=== PATIENT | female | born 1990 | race Caucasian/White ===

== ENCOUNTER → 2017-05-17 | Outpatient (CLI) | payer BC ==
--- NOTE | 2017-05-17 13:04 | US ---
EXAMINATION TYPE: US thyroid st tissue head/neck DATE OF EXAM: 05/17/2017 COMPARISON: NONE CLINICAL HISTORY: 26-year-old female E04.9 NONTOXIC GOITER. TECHNIQUE: Multiple sonographic images of the thyroid gland are obtained. FINDINGS: GLAND SIZE: Right Lobe: 4.7 x 1.3 x 1.4 cm Overall Parenchyma: homogenous Left Lobe: 4.3 x 1.5 x 2.0 cm Overall Parenchyma: homogeneous Isthmus Thickness: 0.12 cm NODULES RIGHT: # of nodules measured on right: 0 LEFT: # of nodules measured on left: 0 ISTHMUS: # of nodules measured in the isthmus: 0 Bilateral neck scanned, no evidence of lymphadenopathy. IMPRESSION: Thyroid gland measurements as above which fall within acceptable limits. No discrete nodule.
== END | disposition home or self-care (01) ==
LOC: RADUSWWP 11:00
PROVIDERS: ATTEND Family Medicine
DX: E04.9 Nontoxic goiter, unspecified (principal)
CPT/HCPCS: 76536

== ENCOUNTER → 2017-05-17 | Outpatient (CLI) | payer BC ==
[2017-05-17 11:11] LABS: Basophils % (A) 0 %; CH 27.2; CHCM 32.4; Eosinophils # (A) 0.1 k/uL (0-0.7); Eosinophils % (A) 2 %; HCT 41.6 % (34.0-46.0); HDW 2.41; HGB 13.4 gm/dL (11.4-16.0); Luc % (Auto) 3; Lymphocytes # (A) 2.2 k/uL (1.0-4.8); Lymphocytes % (A) 31 %; MCH 27.1 pg (25.0-35.0); MCHC 32.1 g/dL (31.0-37.0); MCV 84.3 fL (80.0-100.0); Mean Platelet Volume 6.8; Monocytes # (A) 0.3 k/uL (0-1.0); Monocytes % (A) 5 %; Neutrophils # (A) 4.4 k/uL (1.3-7.7); Neutrophils % (A) 60 %; RBC 4.94 m/uL (3.80-5.40); RDW 12.1 % (11.5-15.5); WBC 7.3 k/uL (3.8-10.6); WBC (Perox) 7.44
== END | disposition home or self-care (01) ==
LOC: LABWHC1 10:36
PROVIDERS: ATTEND Family Medicine
DX: E78.2 Mixed hyperlipidemia (principal); E04.9 Nontoxic goiter, unspecified; R53.83 Other fatigue
CPT/HCPCS: 36415; 80061; 82947; 84439; 84443; 85025

== ENCOUNTER → 2018-10-07 | Outpatient (CLI) | payer BC ==
--- NOTE | 2018-10-07 16:40 | FL ---
EXAMINATION TYPE: FL hysterosalpingography DATE OF EXAM: 10/07/2018 COMPARISON: None HISTORY: Infertility, and 97.9 TECHNIQUE: Fluoroscopy was provided for the procedure. 46 seconds of fluoroscopy time was provided. 1 3 images are obtained. The procedure was explained to the patient, the risks complications and benefits. All questions are a nswered. Informed consent was obtained. The patient was placed on the fluoroscopy table in supine position. Speculum was placed. Speculum litzy ection was limited in the cervix was unable to be visualized the speculum was provided. The procedure was halted and the patient was allowed to relax while additional speculum was obtained. With the spe culum placed and the cervix was localized. The vaginal vault was cleansed with Betadine. Under direct observation the catheter was placed easily into the cervical os and balloon inflated. There is some mild cramping at the time the balloon inflating. Under fluoroscopy 6 mL of Omnipaque 350 70 was admin istered. The patient was placed in prone position and an additional overhead radiograph was obtained demonstrating free spill of the contrast. FINDINGS: There is prompt fill of a normal-appearing uterus. There is early fill through the right fa llopian tube and prompt spilling. The left fallopian tube fills and has free spill. The balloon was d eflated small amount of additional contrast was placed for evaluation of the uterus. There is drainag e of the contrast following removal of the catheter. IMPRESSION: 1. Normal hysterosalpingogram without evidence of fallopian tube obstruction and with free spill of the contrast into the pelvis.
== END | disposition home or self-care (01) ==
LOC: RADFLWHC 13:39
PROVIDERS: ATTEND Obstetrics & Gynecology Obstetrics
DX: N97.9 Female infertility, unspecified (principal)
CPT/HCPCS: 58340; 74740; Q9967

== ENCOUNTER → 2019-02-07 | Outpatient (CLI) | payer BC ==
--- NOTE | 2019-02-07 14:14 | US ---
EXAMINATION TYPE: Transabdominal DATE OF EXAM: 02/07/2019 1:24 PM COMPARISON: NONE CLINICAL HISTORY: O46.91 Bleeding/Spotting-Antepartum. EXAM PERFORMED: Transvaginal (TV) and Transabdominal (TA) EXAM MEASUREMENTS: GESTATIONAL AGE / DATING Physician Established: Not yet established Dates by LMP: (7 weeks/0 days) EDC: 09/26/2019 Dates by First Scan: No previous this is first scan Dates by Current Scan for: (6 weeks/6 days) EDC: 09/27/2019 MATERNAL ANATOMY Uterus: 9.6 x 6.7 x 5.4 cm Right Ovary: Not visualized Left Ovary: 3.6 x 4.1 x 4.2 cm Post CDS / Adnexa: wnl Presence of free fluid: Small amount visualized adjacent to left ovary Presence of corpus luteal cyst: Cystic area left ovary measuring 3.2 x 3.4 x 3.3 cm Presence of subchorionic bleed: Yes, to the left of the gestational sac measuring 1.8 x 0.5 x 0.6 cm GESTATION / SURVEY CRL: 0.9 cm (6 weeks/6 days) Yolk Sac (normal less than 6mm): 2 mm Heart Rate: 132 bpm Rhythm: Normal IUP: Viable IUP Date of LMP: 12/20/2018 Beta HcG (if available): Not available at this time Viable IUP, measurements consistent with dates. Cyst left ovary measuring 3.2 x 3.4 x 3.3 cm. Subchor ionic bleed to the left of the gestational sac measuring 1.8 x 0.5 x 0.6 cm IMPRESSION: 1. Single intrauterine gestation estimated at 6 weeks 6 days gestation based on crown-rump length. Ca rdiac activity measures 132 bpm. 2. Subchorionic hemorrhage measuring 1.8 x 0.5 x 0.5 cm.
== END | disposition home or self-care (01) ==
LOC: RADUSWWP 12:58
PROVIDERS: ATTEND Obstetrics & Gynecology Obstetrics
DX: O46.91 Antepartum hemorrhage, unspecified, first trimester (principal); Z3A.01 Less than 8 weeks gestation of pregnancy
CPT/HCPCS: 76801; 76817

== ENCOUNTER → 2019-02-07 | Outpatient (CLI) | payer BC | END | disposition home or self-care (01) | LOC: LABWHC1 11:01 | PROVIDERS: ATTEND Obstetrics & Gynecology Obstetrics | DX: O20.0 Threatened abortion (principal) | CPT/HCPCS: 36415; 84702; 86850; 86900; 86901 ==

== ENCOUNTER 2019-09-09 08:21 | Inpatient (IN) | payer BC ==
[2019-09-09] MEDS ORDERED: TERBUTALINE 1 MG/ML VIAL SQ PRN (09:25)
[2019-09-09] MEDS ORDERED: CARBOPROST TROMETHAMINE 250 MCG/ML 1 ML AMP IM PRN (09:25)
[2019-09-09] MEDS ORDERED: LIDOCAINE 0.5% (PF) 5 MG/ML (50 ML SDV) SQ PRN (09:25)
[2019-09-09] MEDS ORDERED: METHYLERGONOVINE 0.2 MG/ML 1 ML AMP IM PRN (09:25)
[2019-09-09] MEDS ORDERED: OXYTOCIN 10 UNIT/ML 1 ML VIAL IM PRN (09:25)
[2019-09-09] MEDS ORDERED: OXYTOCIN 30 UNITS/500 ML NS 30 UNIT in SALINE 1 500ML.BAG IV SCH (09:30)
[2019-09-09] MEDS: LACTATED RINGERS 1,000 ML IV SCH ×2 (10:13→22:44)
[2019-09-09 10:36] LABS: Basophils % (A) 0 %; Eosinophils % (A) 0 %; HCT 38.5 % (34.0-46.0); HGB 12.7 gm/dL (11.4-16.0); Lymphocytes # (A) 1.7 k/uL (1.0-4.8); Lymphocytes % (A) 14 %; MCH 26.9 pg (25.0-35.0); MCHC 33.1 g/dL (31.0-37.0); MCV 81.5 fL (80.0-100.0); Monocytes # (A) 0.5 k/uL (0-1.0); Monocytes % (A) 4 %; Neutrophils # (A) 9.4 k/uL (1.3-7.7); Neutrophils % (A) 79 %; Platelet Count 281 k/uL (150-450); RBC 4.72 m/uL (3.80-5.40); RDW 13.1 % (11.5-15.5); WBC 11.9 k/uL (3.8-10.6)
--- NOTE | 2019-09-09 12:34 | P.HPOB ---
History of Present Illness H&P Date: 09/09/19 Chief Complaint: IUP @ 37 4/7 weeks, SROM This is a pleasant 28-year-old 1 para 0 at 37 and 5/sevenths weeks that presents to labor and delivery with complaints of spontaneous rupture of membranes. Patient states she believes she was joe through the evening and then noted spontaneous rupture. Patient has been receiving routine care with myself which has been uncomplicated. On labs blood type is B+, rubella immune, RPR nonreactive, B surface antigen negative, HIV negative, she did pass her one-hour Glucola, group beta strep negative on 08/28. Review of Systems Constitutional: Denies chills, Denies fatigue, Denies fever Ears, nose, mouth and throat: Denies headache Cardiovascular: Reports leg edema Respiratory: Denies dyspnea Gastrointestinal: Denies constipation, Denies diarrhea, Denies nausea, Denies vomiting Genitourinary: Reports Past Medical History Additional Past Medical History / Comment(s): c diff 2009 History of Any Multi-Drug Resistant Organisms: None Reported Past Surgical History: Tonsillectomy Additional Past Surgical History / Comment(s): 2009 Past Anesthesia/Blood Transfusion Reactions: No Reported Reaction Past Psychological History: No Psychological Hx Reported Smoking Status: Never smoker - Past Family History Mother Additional Family Medical History / Comment(s): thyroid cancer Medications and Allergies Home Medications Medication Instructions Recorded Confirmed Type Docusate [Colace] 100 mg PO DAILY 09/09/19 09/09/19 History Pnv No.95/Ferrous Fum/Folic AC 1 each PO DAILY 09/09/19 09/09/19 History [ Multivitamin Tablet] Allergies Allergy/AdvReac Type Severity Reaction Status Date / Time No Known Allergies Allergy Verified 09/09/19 08:32 Exam Osteopathic Statement: *. No significant issues noted on an osteopathic structural exam other than those noted in the History and Physical/Consult. 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 On cervical exam she is 3/80/-2. Results Result Diagrams: 09/09/19 09:45 Abnormal Lab Results - Last 24 Hours (Table) 09/09/19 Range/Units 09:45 WBC 11.9 H (3.8-10.6) k/uL Neutrophils # 9.4 H (1.3-7.7) k/uL Assessment and Plan (1) Term Current Visit: Yes Status: Acute Code(s): Z34.90 - ENCNTR FOR SUPRVSN OF NORMAL , UNSP, UNSP TRIMESTER SNOMED Code(s): 80452523 (2) SROM (spontaneous rupture of membranes) Current Visit: Yes Status: Acute Code(s): MPY3565 - SNOMED Code(s): 245697622 Plan: Patient is admitted to labor and delivery, Pitocin augmentation of labor is discussed and begun. Options for analgesia during labor or discussed including Stadol, epidural. Patient will decide when she would like something for discomfort.
[2019-09-09] MEDS ORDERED: fentaNYL (PF) 50 MCG/ML 5 ML AMP ONE (14:02)
[2019-09-09] MEDS ORDERED: SODIUM CHLORIDE 0.9% 100 ML BAG ONE (14:02)
[2019-09-09] MEDS ORDERED: ROPIVACAINE 5MG/ML 20ML VIAL ONE (14:02)
[2019-09-09] MEDS ORDERED: HYDROcodone/APAP 5-325MG 1 EACH TAB PO PRN (19:18)
[2019-09-09] MEDS ORDERED: diphenhydrAMINE 25 MG CAP PO PRN (19:18)
[2019-09-09] MEDS ORDERED: diphenhydrAMINE 50 MG/ML 1 ML VIAL IVP PRN ×2 (19:18)
[2019-09-09] MEDS ORDERED: HYDROCORTISONE 2.5% RECTAL CREAM 30 GM TUBE RECTAL PRN (19:18)
[2019-09-09] MEDS ORDERED: ACETAMINOPHEN TAB 325 MG TAB PO PRN (19:18)
[2019-09-09] MEDS ORDERED: LANOLIN CREAM 5 GM TUBE TOPICAL PRN (19:18)
[2019-09-09] MEDS ORDERED: BENZOCAINE/MENTHOL SPRAY 1 GM/SPRAY AEROSOL TOPICAL PRN (19:18)
[2019-09-09] MEDS ORDERED: diphenhydrAMINE 50 MG CAP PO PRN (19:18)
[2019-09-09] MEDS ORDERED: SIMETHICONE 80 MG CHEWABLE PO PRN (19:18)
[2019-09-09] MEDS ORDERED: ZOLPIDEM 5 MG TAB PO PRN (19:18)
[2019-09-09] MEDS ORDERED: WITCH HAZEL 1 EACH MED..PAD TOPICAL PRN (19:18)
--- NOTE | 2019-09-09 19:22 | P.PROBDLV ---
Vaginal Delivery Note - . Vaginal Delivery Note: This pleasant 28-year-old 1 para 0 presented to labor and delivery earlier today with complaints of spontaneous rupture of membranes. Patient noted contractions throughout the night with eventual rupture of clear fluid. Patient had been receiving routine care prior to this care is been uncomplicated. Patient was admitted and Pitocin augmentation of labor was begun. Group beta strep cultures were negative. Patient progressed through lab or becoming uncomfortable eventually requesting epidural placement epidural was placed without difficulty by the anesthesia department. Patient progressed to complete began pushing and had a normal spontaneous vaginal delivery of a viable female at 1845. A loose nuchal and arm cord was noted, these were delivered through. The umbilical was doubly clamped and cut and the placenta was delivered spontaneous intact with a three-vessel cord being noted. On inspection the patient's vaginal vault a second-degree midline laceration was noted. This was repaired in usual fashion with 3-0 Rapide. Hemostasis was appreciated after closure. Uterus noted be firm and below the umbilicus at this time. was noted to have tachypnea therefore was taken to the nursery for evaluation. Patient tolerated delivery well, estimated blood loss 100 mL, all counts were correct 2.
[2019-09-09] MEDS ORDERED: OXYTOCIN 20 UNITS/1000 ML NS 1,000 ML IV SCH (19:30)
[2019-09-09] MEDS: IBUPROFEN 600 MG TAB PO PRN (19:39)
[2019-09-09] MEDS: SENNOSIDES-DOCUSATE SODIUM 1 EACH TAB PO SCH (22:42)
[2019-09-10] MEDS: LACTATED RINGERS 1,000 ML IV SCH (03:35)
[2019-09-10] MEDS: IBUPROFEN 600 MG TAB PO PRN ×2 (04:07→19:10)
[2019-09-10] MEDS: SENNOSIDES-DOCUSATE SODIUM 1 EACH TAB PO SCH ×2 (08:05→19:11)
[2019-09-10] MEDS: PRENATAL VIT-IRON-FOLIC ACID 1 EACH CAP PO SCH (08:08)
--- NOTE | 2019-09-10 08:50 | P.PNOBGVD ---
Subjective - Subjective Principal diagnosis: PPD 1 Interval history: Patient is doing well. She states her pain is well-controlled. She is tolerating a regular diet without nausea or vomiting. She states her lochia is moderate. She denies concerns and breast-feeding is going well. Patient reports: Reports appetite normal, Reports voiding normally, Reports pain well controlled, Reports ambulating normally [place]: doing well, nursing well Objective - Latest Vital Signs Latest vital signs: Vital Signs Temp Pulse Resp BP Pulse Ox 09/10/19 04:00 98.9 F 82 16 113/68 09/10/19 00:00 98.1 F 87 16 114/69 09/09/19 21:00 98.1 F 86 16 120/74 09/09/19 20:30 98.1 F 89 18 132/69 09/09/19 20:00 98.2 F 86 18 117/72 09/09/19 19:45 95 15 137/82 09/09/19 19:30 98.9 F 102 H 18 131/68 09/09/19 19:15 112 H 18 157/80 99 09/09/19 19:00 99.7 F H 107 H 18 141/68 98 09/09/19 09:04 97.7 F 83 17 127/85 98 Intake and Output 09/09/19 09/10/19 09/10/19 22:59 06:59 14:59 Output Total 150 Balance -150 Output: Urine 150 Straight 150 Other: # Voids 1 1 - Exam Extremities: Present: normal, edema Abdomen: Present: normal appearance, soft Uterus: Present: normal, firm - Labs Labs: Abnormal Lab Results - Last 24 Hours (Table) 09/09/19 Range/Units 09:45 WBC 11.9 H (3.8-10.6) k/uL Neutrophils # 9.4 H (1.3-7.7) k/uL Assessment and Plan (1) Term Current Visit: Yes Status: Acute Code(s): Z34.90 - ENCNTR FOR SUPRVSN OF NORMAL , UNSP, UNSP TRIMESTER SNOMED Code(s): 54940462 (2) SROM (spontaneous rupture of membranes) Current Visit: Yes Status: Acute Code(s): EHG5546 - SNOMED Code(s): 351929016 (3) Status post vaginal delivery Current Visit: Yes Status: Acute Code(s): VUN3626 - SNOMED Code(s): 248283508 (4) Second degree perineal laceration Current Visit: Yes Status: Acute Code(s): O70.1 - SECOND DEGREE PERINEAL LACERATION DURING DELIVERY SNOMED Code(s): 5961916 Plan: Patient is doing well . Will plan to continue routine care. And anticipate discharge home tomorrow.
[2019-09-10 16:34] VITALS: RESP 16
[2019-09-11] MEDS: SENNOSIDES-DOCUSATE SODIUM 1 EACH TAB PO SCH (08:44)
[2019-09-11] MEDS: IBUPROFEN 600 MG TAB PO PRN (08:45)
[2019-09-11] MEDS: PRENATAL VIT-IRON-FOLIC ACID 1 EACH CAP PO SCH (08:45)
--- NOTE | 2019-09-11 09:10 | P.DS ---
Providers Date of admission: 09/09/19 09:07 Expected date of discharge: 09/11/19 Attending physician: Damaris Meyer Primary care physician: Jahaira Subramanian - Discharge Diagnosis(es) (1) Term Current Visit: Yes Status: Acute (2) SROM (spontaneous rupture of membranes) Current Visit: Yes Status: Acute (3) Status post vaginal delivery Current Visit: Yes Status: Acute (4) Second degree perineal laceration Current Visit: Yes Status: Acute Hospital Course: This is a 28-year-old 1 para 0 that presented to labor and delivery at 37-4/7 weeks with complaints of rupture of membranes overnight. Patient stated the fluid was clear. Patient was admitted and Pitocin augmentation of labor was begun. Group beta strep cultures were negative during care. Patient pressed to labor began becoming uncomfortable and requesting epidural placement. Epidural was placed without difficulty by the anesthesia . Patient progressed to complete began pushing and had a normal spontaneous vaginal delivery of a viable female infant at 1845. Patient did sustain a second degree midline laceration which was repaired in the usual fashion with 3-0 Rapide. Patient's course has been uneventful. On this post day #2 she is ambulatory and voiding without difficulty. She is tolerating a regular diet without nausea or vomiting. She states her pain is well-controlled. She denies concerns and states she is ready for discharge. Patient Condition at Discharge: Good Plan - Discharge Summary New Discharge Prescriptions: No Action Docusate [Colace] 100 mg PO DAILY Pnv No.95/Ferrous Fum/Folic AC [ Multivitamin Tablet] 1 each PO DAILY Discharge Medication List Docusate [Colace] 100 mg PO DAILY 09/09/19 [History] Pnv No.95/Ferrous Fum/Folic AC [ Multivitamin Tablet] 1 each PO DAILY 09/09/19 [History] Follow up Appointment(s)/Referral(s): Damaris Meyer DO [Doctor of Osteopathic Medicine] - 4 Weeks Patient Instructions/Handouts: Vaginal Delivery (DC), Vaginal Delivery (GEN) Discharge Disposition: HOME SELF-CARE
[2019-09-11 09:18] VITALS: BP 126/75; PULSE 81; TEMP 98.1
--- NOTE | 2019-09-11 09:58 | P.MSEPDOC ---
Presenting Problems - Arrival Data Date of Arrival on Unit: 09/09/19 Time of Arrival on Unit: 09:13 Mode of Transport: Ambulatory - Complaint OB-Reason for Admission/Chief Complaint: Rule Out SROM Comment: SROM today at 0710 for large amt of clear fluid, pt denies contractions, reports + fm, denies vb, abd soft and non tender Medical History - Information : 1 Para: 0 Term: 0 : 0 Abortions: Spontaneous or Elective: 0 Number of Living Children: 0 - Gestational Age Gestational Age by CLAIRE (wks/days): 37 Weeks and 4 Days Review of Systems - Review of Systems Constitutional: No problems Breast: No problems ENT: No problems Cardiovascular: No problems Respiratory: No problems Gastrointestinal: No problems Genitourinary: No problems Musculoskeletal: No problems Neurological: No problems Skin: No problems Vital Signs - Temperature Temperature: 98.1 F Temperature Source: Oral - Pulse Right Brachial Pulse Rate: 81 Pulse Assessment Method: Automatic Cuff - Respirations Respiratory Rate: 16 Oxygen Delivery Method: Room Air - Blood Pressure Right Arm Blood Pressure: 126/75 Blood Pressure Mean: 92 Blood Pressure Source: Automatic Cuff Medical Screen Scoring (Pre) - Cervical Exam Dilation: 1-3 cm = 1 Membranes: Ruptured = 3 - Uterine Contractions Frequency: > 5 minutes apart = 1 Duration: > 40 seconds = 2 - Maternal Vital Signs Maternal Temperature: N/A Maternal Blood Pressure: N/A Signs of Preeclampsia: N/A Maternal Respirations: N/A - Maternal Trauma Maternal Trauma: N/A - Assessment - Baby A Baseline FHR: 140 Heart Rate - NICHD Category: Category I (Normal) = 0 NST: Reactive Position: N/A Station: N/A - Total Score - Baby A Total Score - Baby A: 7 - Total Score - Baby B Total Score - Baby B: 7 - Total Score - Baby C Total Score - Baby C: 7 - Level of Risk - Baby A Level of Risk - Baby A: Medium (6-9) - Level of Risk - Baby B Level of Risk - Baby B: Medium (6-9) - Level of Risk - Baby C Level of Risk - Baby C: Medium (6-9) Physician Notification (Pre) - Physician Notified Physician Notified Date: 09/09/19 Physician Notified Time: 09:00 New Order Received: Yes (admit pt for labor) Disposition - Disposition OB Disposition: Admit I agree with the RN Medical Screening Exam: Yes Risk & Benefit of care provided described in d/c instruction: Yes Diagnosis: LOUSE-BORNE TYPHUS
== END 2019-09-11 11:38 | disposition home or self-care (01) | DRG 807 ==
LOC: FBPOP 08:21 → 4FBP 09:07
PROVIDERS: ADMIT Obstetrics & Gynecology Obstetrics; ATTEND Obstetrics & Gynecology Obstetrics
DX: O42.02 Full-term premature rupture of membranes, onset of labor within 24 hours of rupture (principal); Z37.0 Single live birth; O70.1 Second degree perineal laceration during delivery; Z3A.37 37 weeks gestation of pregnancy; Z79.899 Other long term (current) drug therapy; Z86.19 Personal history of other infectious and parasitic diseases; Z80.8 Family history of malignant neoplasm of other organs or systems
CPT/HCPCS: 59025; 84112; 85025; 86850; 86900; 86901; 88307; 99213

== ENCOUNTER 2021-12-04 10:29 | Outpatient (CLI) | payer BC ==
[2021-12-04 11:15] VITALS: BP 137/83; PULSE 82; RESP 16; TEMP 98.3
--- NOTE | 2022-01-06 10:42 | P.MSEPDOC ---
Presenting Problems - Arrival Data Date of Arrival on Unit: 12/04/21 Time of Arrival on Unit: 10:29 Mode of Transport: Ambulatory - Complaint OB-Reason for Admission/Chief Complaint: Rule Out SROM Comment: questionable rom at 1000 for clear non odorous fluid, amnisure results negative Medical History - Information : 2 Para: 1 Term: 1 : 0 Abortions: Spontaneous or Elective: 0 Number of Living Children: 1 - Gestational Age Gestational Age by CLAIRE (wks/days): 37 Weeks and 2 Days Review of Systems - Review of Systems Constitutional: No problems Breast: No problems ENT: No problems Cardiovascular: No problems Respiratory: No problems Gastrointestinal: No problems Genitourinary: No problems Musculoskeletal: No problems Neurological: No problems Skin: No problems Vital Signs - Temperature Temperature: 98.3 F Temperature Source: Oral - Pulse Right Brachial Pulse Rate: 82 Pulse Assessment Method: Automatic Cuff - Respirations Respiratory Rate: 16 Oxygen Delivery Method: Room Air O2 Sat by Pulse Oximetry: 98 - Blood Pressure Right Arm Blood Pressure: 137/83 Blood Pressure Mean: 101 Blood Pressure Source: Automatic Cuff Medical Screen Scoring - Cervical Exam Dilation (cm): 0 Effacement (%): 50 Station: -2 Membranes: Intact - Assessment - Baby A Baseline FHR: 155 Heart Rate - NICHD Category: Category I (Normal) NST: Reactive Physician Notification - Physician Notified Physician Notified Date: 12/04/21 Physician Notified Time: 11:05 Physician: Jones Herrmann Order Received: Yes (discharge home) Maternal Triage Index - Non-Urgent/Priority 4 Non-Urgent Priority 4: Yes Criteria Met for Priority 4: amnisure negative Disposition - Disposition OB Disposition: Discharge to home, Written follow up instructions reviewed Discharge Date: 12/04/21 Discharge Time: 11:10 I agree with the RN Medical Screening Exam: Yes Physician's MSE Comment: I have neither seen nor examined the patient. Case reviewed; plan agreed upon as documented in EMR&OBIX.: Yes Diagnosis: RELATED CONDITIONS, UNSPECIFIED, THIRD TRIMESTER
== END 2021-12-04 11:10 | disposition home or self-care (01) ==
LOC: FBPOP 10:29
PROVIDERS: ATTEND Obstetrics & Gynecology
DX: Z03.79 Encounter for other suspected maternal and fetal conditions ruled out (principal)
CPT/HCPCS: 59025; 84112; 99213

== ENCOUNTER 2021-12-16 01:44 | Inpatient (IN) | payer BC ==
[2021-12-16] MEDS ORDERED: LIDOCAINE 0.5% (PF) 5 MG/ML (50 ML SDV) SQ PRN (02:16)
[2021-12-16] MEDS ORDERED: CARBOPROST TROMETHAMINE 250 MCG/ML 1 ML AMP IM PRN (02:16)
[2021-12-16] MEDS ORDERED: OXYTOCIN 10 UNIT/ML 1 ML VIAL IM PRN (02:16)
[2021-12-16] MEDS ORDERED: METHYLERGONOVINE 0.2 MG/ML 1 ML AMP IM PRN (02:16)
[2021-12-16] MEDS ORDERED: TERBUTALINE 1 MG/ML VIAL SQ PRN (02:16)
[2021-12-16] MEDS ORDERED: AMPICILLIN 2,000 MG in SODIUM CHLORIDE 0.9% 100 ML IVPB STA (02:16)
[2021-12-16 02:32] LABS: Basophils # (A) 0.1 k/uL (0-0.2); Basophils % (A) 0 %; Eosinophils # (A) 0.1 k/uL (0-0.7); Eosinophils % (A) 1 %; HCT 37.1 % (34.0-46.0); Lymphocytes # (A) 2.9 k/uL (1.0-4.8); Lymphocytes % (A) 25 %; MCH 26.3 pg (25.0-35.0); MCHC 32.4 g/dL (31.0-37.0); MCV 81.2 fL (80.0-100.0); Mean Platelet Volume 8.3; Monocytes # (A) 0.6 k/uL (0-1.0); Monocytes % (A) 5 %; Neutrophils # (A) 7.8 k/uL (1.3-7.7); Neutrophils % (A) 66 %; Platelet Count 307 k/uL (150-450); RBC 4.57 m/uL (3.80-5.40); RDW 13.9 % (11.5-15.5); WBC 11.9 k/uL (3.8-10.6)
[2021-12-16] MEDS: LACTATED RINGERS 1,000 ML IV SCH ×3 (02:33→06:32)
[2021-12-16] MEDS ORDERED: fentaNYL (PF) 50 MCG/ML 5 ML AMP ONE (02:51)
[2021-12-16] MEDS ORDERED: ePHEDrine 50 MG/ML 1 ML VIAL ONE (02:51)
[2021-12-16] MEDS ORDERED: ROPIVACAINE 5MG/ML 20ML VIAL ONE (02:51)
[2021-12-16] MEDS ORDERED: SODIUM CHLORIDE 0.9% 100 ML BAG ONE (02:51)
[2021-12-16] MEDS: AMPICILLIN 1,000 MG in SODIUM CHLORIDE 0.9% 50 ML IVPB SCH ×2 (06:38→12:27)
--- NOTE | 2021-12-16 08:50 | P.HPOB ---
History of Present Illness H&P Date: 12/16/21 Chief Complaint: IUP at 39-0/7 weeks, active labor This is a 31-year-old at 39-0/7 weeks that presented last evening with complaints of regular painful contractions. Patient states contractions started around 11 PM and progressed. Patient presented to labor and delivery around 1:30 this morning and was noted to be 5 cm. Patient was admitted to labor and delivery. Patient quickly requested epidural. Patient has been receiving routine care with myself which has been essentially uncomplicated. Patient does note good movement and denied loss of fluid upon admission. On bloodwork patient has a known bloodtype of B positive, rubella stat us immune, RPR is NR, HIV in neg, GBS positive. Review of Systems Constitutional: Denies chills, Denies fatigue, Denies fever Ears, nose, mouth and throat: Denies headache Cardiovascular: Reports leg edema Respiratory: Denies dyspnea Gastrointestinal: Denies constipation, Denies diarrhea, Denies nausea, Denies vomiting Genitourinary: Reports Past Medical History Past Medical History: GERD/Reflux Additional Past Medical History / Comment(s): c diff 2009 History of Any Multi-Drug Resistant Organisms: C-DIFF Date of last positivie culture/infection: 2008 MDRO Source:: stool Past Surgical History: Tonsillectomy Additional Past Surgical History / Comment(s): 2009 Past Anesthesia/Blood Transfusion Reactions: No Reported Reaction Past Psychological History: No Psychological Hx Reported Smoking Status: Never smoker - Past Family History Mother Additional Family Medical History / Comment(s): thyroid cancer Medications and Allergies Home Medications Medication Instructions Recorded Confirmed Type Docusate [Colace] 100 mg PO DAILY 09/09/19 12/16/21 History Pnv No.95/Ferrous Fum/Folic AC 1 each PO DAILY 09/09/19 12/16/21 History [ Multivitamin Tablet] Aspirin [[place] Aspirin EC] 81 mg PO DAILY 12/04/21 12/16/21 History Allergies Allergy/AdvReac Type Severity Reaction Status Date / Time No Known Allergies Allergy Verified 12/16/21 02:14 Exam Osteopathic Statement: *. No significant issues noted on an osteopathic structural exam other than those noted in the History and Physical/Consult. Vital Signs Temp Pulse Resp BP 12/16/21 02:13 97.5 F L 86 16 144/86 Intake and Output 12/15/21 12/16/21 12/16/21 22:59 06:59 14:59 Output Total 700 Balance -700 Output: Urine 700 Other: # Voids 1 Weight 75.296 kg targeted physical exam done on this date, in general this is a well nourished well develpoed female in no acute distress, breathing is noted to be non labored, heart has a regular rate and rhythm, abdomen is gravid and appropriate for gestational age. heart tones are category 1, she is joe q 2-3 minutes. on cervical exam she is complete and zero station. Results Result Diagrams: 12/16/21 02:03 Abnormal Lab Results - Last 24 Hours (Table) 12/16/21 Range/Units 02:03 WBC 11.9 H (3.8-10.6) k/uL Neutrophils # 7.8 H (1.3-7.7) k/uL Assessment and Plan (1) Active labor Current Visit: Yes Status: Acute Code(s): VKG5803 - SNOMED Code(s): 650812660 (2) Positive GBS test Current Visit: Yes Status: Acute Code(s): B95.1 - STREPTOCOCCUS, GROUP B, CAUSING DISEASES CLASSD ELSR SNOMED Code(s): 435955066 (3) Term Current Visit: No Status: Acute Code(s): Z34.90 - ENCNTR FOR SUPRVSN OF NORMAL , UNSP, UNSP TRIMESTER SNOMED Code(s): 19298766 Plan: 31yo at 39 0/7 weeks that presents in active labor. She did receive an epidural short after admission for pain control. Anticipate spontaneous vaginal delivery this morning.
--- NOTE | 2021-12-16 08:55 | P.PROBDLV ---
Vaginal Delivery Note - . Vaginal Delivery Note: This is a 31-year-old at 39-0/7 weeks that presents to labor and delivery with complaints of regular painful contractions began around 11 AM. Patient states they got more uncomfortable and regular presents to labor and delivery around 1:32 AM. Patient denied loss of fluid. Patient has been receiving routine care which has been essentially uncomplicated. Patient was admitted to labor and delivery and requested epidural placement. Epidural was placed without difficulty by the anesthesia department. Antibiotics were begun given positive group beta strep Patient progressed in labor eventually becoming complete. Amniotomy was performed at that time. Patient was placed in the modified lithotomy position and with excellent maternal effort pushed the baby down to a presentation. With additional effort the anterior/posterior shoulder were delivered with a loose nuchal cord appreciated. The body was then placed on the maternal abdomen, spontaneous cry was noted at . A viable male was delivered at 829, weight of 7 lbs. 7 oz., Apgars of 9 and 10 at one and 5 minutes respectively. The placenta was then delivered spontaneously intact with a three-vessel cord being noted. On inspection the patient's vaginal vault a first 3 vaginal laceration was appreciated and repaired in the usual fashion with 3-0 Rapide. The uterus is noted be firm and below the umbilicus. Estimated blood loss for this delivery 100 mL. All counts were noted to be correct 2 at the end delivery. Patient and infant tolerated delivery well and are resting comfortably.
[2021-12-16] MEDS ORDERED: diphenhydrAMINE 50 MG/ML 1 ML VIAL IVP PRN ×2 (08:56)
[2021-12-16] MEDS ORDERED: ACETAMINOPHEN TAB 325 MG TAB PO PRN (08:56)
[2021-12-16] MEDS ORDERED: SIMETHICONE 80 MG CHEWABLE PO PRN (08:56)
[2021-12-16] MEDS ORDERED: BENZOCAINE/MENTHOL SPRAY 1 GM/SPRAY AEROSOL TOPICAL PRN (08:56)
[2021-12-16] MEDS ORDERED: ZOLPIDEM 5 MG TAB PO PRN (08:56)
[2021-12-16] MEDS ORDERED: diphenhydrAMINE 50 MG CAP PO PRN (08:56)
[2021-12-16] MEDS ORDERED: HYDROCORTISONE 2.5% RECTAL CREAM 30 GM TUBE RECTAL PRN (08:56)
[2021-12-16] MEDS ORDERED: diphenhydrAMINE 25 MG CAP PO PRN (08:56)
[2021-12-16] MEDS ORDERED: LANOLIN CREAM 5 GM TUBE TOPICAL PRN (08:56)
[2021-12-16] MEDS ORDERED: OXYTOCIN 30 UNITS/500 ML NS 30 UNIT in SALINE 1 500ML.BAG IV SCH (09:00)
[2021-12-16 10:19] VITALS: RESP 16
[2021-12-16] MEDS: IBUPROFEN 600 MG TAB PO SCH ×2 (12:25→19:32)
[2021-12-16] MEDS: SENNOSIDES-DOCUSATE SODIUM 1 EACH TAB PO SCH ×2 (12:26→21:38)
[2021-12-16] MEDS: PRENATAL VIT-IRON-FOLIC ACID 1 EACH TABLET PO SCH (12:28)
[2021-12-17] MEDS: IBUPROFEN 600 MG TAB PO SCH ×2 (04:35→09:47)
[2021-12-17 09:35] VITALS: BP 102/69; PULSE 82; TEMP 98.4
[2021-12-17] MEDS: PRENATAL VIT-IRON-FOLIC ACID 1 EACH TABLET PO SCH (09:47)
[2021-12-17] MEDS: SENNOSIDES-DOCUSATE SODIUM 1 EACH TAB PO SCH (09:48)
--- NOTE | 2021-12-17 10:25 | P.DS ---
Providers Date of admission: 12/16/21 01:44 Expected date of discharge: 12/17/21 Attending physician: Damaris Meyer Primary care physician: Stated None - Discharge Diagnosis(es) (1) Active labor Current Visit: Yes Status: Acute (2) Positive GBS test Current Visit: Yes Status: Acute (3) Status post vaginal delivery Current Visit: No Status: Acute (4) Term Current Visit: No Status: Acute Hospital Course: This is a 31-year-old 2 now para 2 woman who presented in spontaneous active labor at 39-0/7 weeks gestation. She is known group B strep positive and did receive prophylactic antibiotics. She received an epidural anesthetic and underwent artificial rupture of membranes. She went on to deliver a liveborn male weighing 7 lbs. 7 oz. over a first-degree perineal laceration. Please see the delivery summary for details. Patient's course was unremarkable. By day #1 she was ambulating and voiding without difficulty. Her lochia was decreasing. Her vital signs were stable and she was tolerating a general diet. She is nursing successfully. She was therefore discharged home with routine instructions for care and follow-up. Patient Condition at Discharge: Good Plan - Discharge Summary Discharge Rx Participant: Yes New Discharge Prescriptions: No Action Docusate [Colace] 100 mg PO DAILY Pnv No.95/Ferrous Fum/Folic AC [ Multivitamin Tablet] 1 each PO DAILY Aspirin [[place] Aspirin EC] 81 mg PO DAILY Discharge Medication List Docusate [Colace] 100 mg PO DAILY 09/09/19 [History] Pnv No.95/Ferrous Fum/Folic AC [ Multivitamin Tablet] 1 each PO DAILY 09/09/19 [History] Aspirin [[place] Aspirin EC] 81 mg PO DAILY 12/04/21 [History] Follow up Appointment(s)/Referral(s): Damaris Meyer DO [Doctor of Osteopathic Medicine] - 6 Weeks Activity/Diet/Wound Care/Special Instructions: Follow-up in the office in 6 weeks . Call with any concerning signs or symptoms including heavy vaginal bleeding, severe abdominal pain, fever greater than 100.5, swelling or redness of the lower extremities, foul vaginal discharge, or signs of depression. Nothing in the vagina for 6 weeks after delivery, specifically no intercourse. Discharge Disposition: HOME SELF-CARE
== END 2021-12-17 13:15 | disposition home or self-care (01) | DRG 807 ==
LOC: 4FBP 01:44
PROVIDERS: ADMIT Obstetrics & Gynecology Obstetrics; ATTEND Obstetrics & Gynecology Obstetrics
PROC: 10E0XZZ Delivery of Products of Conception, External Approach (ICD-10-PCS; principal; 2021-12-16)
PROC: 0HQ9XZZ Repair Perineum Skin, External Approach (ICD-10-PCS; 2021-12-16)
PROC: 4A0HXCZ Measurement of Products of Conception, Cardiac Rate, External Approach (ICD-10-PCS; 2021-12-16)
PROC: 10907ZC Drainage of Amniotic Fluid, Therapeutic from Products of Conception, Via Natural or Artificial Opening (ICD-10-PCS; 2021-12-16)
DX: O69.81X0 Labor and delivery complicated by cord around neck, without compression, not applicable or unspecified (principal); Z37.0 Single live birth; O70.0 First degree perineal laceration during delivery; O99.824 Streptococcus B carrier state complicating childbirth; Z79.82 Long term (current) use of aspirin; O99.62 Diseases of the digestive system complicating childbirth; K21.9 Gastro-esophageal reflux disease without esophagitis; Z3A.39 39 weeks gestation of pregnancy; Z87.19 Personal history of other diseases of the digestive system
CPT/HCPCS: 85025; 86850; 86900; 86901

== ENCOUNTER → 2023-12-26 | Outpatient (CLI) | payer BC ==
--- NOTE | 2023-12-26 10:06 | CT ---
EXAMINATION TYPE: CT abdomen pelvis w con CT DLP: 714 mGycm, Automated exposure control for dose reduction was used. DATE OF EXAM: 12/26/2023 9:41 AM COMPARISON: None CLINICAL INDICATION:Female, 33 years old with history of R19.7 DIARRHEA; Abdominal pain LLQ and diarr hea x 1 month. TECHNIQUE: Axial CT abdomen pelvis w con;Sagittal and coronal reformats were created on a separate w orkstation. Contrast used:100 mL of Isovue 300 with IV Contrast, (none if empty) Oral contrast used: with Oral Contrast (none if empty) FINDINGS: LOWER CHEST: Unremarkable ABDOMEN LIVER: Unremarkable GALLBLADDER AND BILE DUCTS: Unremarkable. PANCREAS: Unremarkable. SPLEEN: Unremarkable. ADRENAL GLANDS: Unremarkable. KIDNEYS AND URETERS: No evidence of hydronephrosis or renal calculus. The ureters are unremarkable. PELVIS BLADDER: Unremarkable REPRODUCTIVE: Tampon within the vagina. ABDOMEN & PELVIS STOMACH AND BOWEL: No evidence of bowel obstruction. Oral contrast extends to the rectum. Within the limitations exam there is no definitive acute left lower quadrant process. Nondistended sigmoid colon . The appendix is visualized and within normal limits. PERITONEUM/RETROPERITONEUM: No evidence of pneumoperitoneum or free fluid. VASCULATURE: No evidence of aortic aneurysm. MUSCULOSKELETAL: No acute osseous abnormalities LYMPH NODES: No gross evidence for lymphadenopathy. SOFT TISSUE/ABDOMINAL WALL: Unremarkable IMPRESSION: 1. No evidence for acute abdominal process. 2. No obstructive uropathy or renal calculus.
== END | disposition home or self-care (01) ==
LOC: RADCTMAIN 07:54
PROVIDERS: ATTEND Internal Medicine Geriatric Medicine
DX: R19.7 Diarrhea, unspecified (principal); R10.32 Left lower quadrant pain
CPT/HCPCS: 74177; Q9967

== ENCOUNTER → 2024-12-30 | Outpatient (CLI) | payer BC ==
--- NOTE | 2024-12-30 14:36 | MM ---
Reason for Exam: Screening (asymptomatic). Baseline mammogram. Patient History: Menarche at age 10. First Full-Term at age 28. Late child-bearing (after 28). Patient used Hormonal Contraceptives for 7 years. Paternal grandmother had breast cancer. Last menstrual period: 12/05/2024 Risk Values: Kylie 5 year model risk: 0.5%. NCI Lifetime model risk: 13.8%. Prior Study Comparison: Patient's first Mammogram. No prior studies available for comparison. Tissue Density: The breasts are heterogeneously dense, which may obscure small masses. Findings: Analyzed By CAD. There is no suspicious group of microcalcifications or new suspicious mass in either breast. Overall Assessment: Negative, BI-RAD 1 Management: Screening Mammogram of both breasts in 1 year. . Patient should continue monthly self-breast exams. A clinical breast exam by your physician is recommended on an annual basis. This exam should not preclude additional follow-up of suspicious palpable abnormalities. Note on Kylie scores and lifetime risk: 1. A Kylie score greater than 3% is considered moderate risk. If this is the case, consider specialist referral to assess eligibility for a risk reducing agent. 2. If overall lifetime risk for the development of breast cancer is 20% or higher, the patient may qualify for future screening with alternating mammogram and breast MRI. [facility], , 12/30/2024 2:32 PM. Electronically signed and approved by: Srinivas Bess M.D. Radiologis
== END | disposition home or self-care (01) ==
LOC: RADMAMWWP 14:06
PROVIDERS: ATTEND Internal Medicine Geriatric Medicine
DX: Z12.31 Encounter for screening mammogram for malignant neoplasm of breast (principal); R92.333 Mammographic heterogeneous density, bilateral breasts; Z80.3 Family history of malignant neoplasm of breast; Z92.0 Personal history of contraception
CPT/HCPCS: 77063; 77067